=== PATIENT | male | born 1985 | race Caucasian/White ===

== ENCOUNTER 2016-12-29 12:30 | Emergency (ER) | payer SELFPAY ==
[~2016-12-29] VITALS: Ht 86.4 cm; Wt 79.4 kg
[2016-12-29] MEDS ORDERED: VANCOMYCIN IV 1,000 MG in IV DEXTROSE 5% 250 ML IV ONE (13:30)
[2016-12-29] MEDS ORDERED: VANCOMYCIN IV 200 ML ONE (13:53)
--- NOTE | 2016-12-29 15:53 | NUR ---
IV removed. Catheter intact and site benign. Pressure and 4x4 gauze applied to site. No bleeding noted.
--- NOTE | 2016-12-29 15:54 | NUR ---
Patient discharged to home in stable conditon with friend. Written and verbal after care instructions given. Patient verbalizes understanding of instructions. Stressed follow up.
== END 2016-12-29 15:59 | disposition home or self-care (01) ==
LOC: ER 12:30
DX: L03.011 Cellulitis of right finger (principal)
CPT/HCPCS: 73140; A4217; A4663; J3370

== ENCOUNTER 2017-01-05 08:15 | Emergency (ER) | payer SELFPAY ==
[~2017-01-05] VITALS: Ht 177.8 cm; Wt 79.4 kg
[2017-01-05] MEDS ORDERED: LIDOCAINE HCL 1% 20 ML VIAL ONE (08:58)
[2017-01-05] MEDS: LIDOCAINE HCL 1% 20 ML VIAL IJ ONE ×2 (09:22→09:56)
--- NOTE | 2017-01-05 09:24 | NUR ---
pt is in room #2b. dr Sanchez evaluated the pt.
--- NOTE | 2017-01-05 09:57 | NUR ---
i&d procedure was done by dr Sanchez on pt's right tumb. pt tolerated to procedure without complications.
[2017-01-05] MEDS ORDERED: LIDOCAINE 1%-EPI 1:100,000 20 ML VIAL TP ONE (10:00)
[2017-01-05] MEDS ORDERED: LIDOCAINE 2%-EPI 1:100,000 20 ML VIAL TP ONE (10:00)
[2017-01-05] MEDS ORDERED: LIDOCAINE 2%-EPI 1:100,000 20 ML VIAL ONE (10:05)
[2017-01-05] MEDS ORDERED: CLINDAMYCIN HCL 150 MG CAPSULE PO ONE (10:45)
--- NOTE | 2017-01-05 11:23 | NUR ---
pt was d/c to home. d/c instructions given to the pt. gauze dressing was applied to pt's wound per dr Sanchez order. no bleeding.
[2017-01-05 11:25] VITALS: BP 136/78
[2017-01-05] MEDS ORDERED: CLINDAMYCIN HCL 150 MG CAPSULE ONE (11:27)
== END 2017-01-05 11:26 | disposition home or self-care (01) ==
LOC: ER 08:15
DX: L03.011 Cellulitis of right finger (principal)
CPT/HCPCS: 73140; A4217; A4663; J3490

== ENCOUNTER 2017-01-07 03:43 | Emergency (ER) | payer SELFPAY ==
[~2017-01-07] VITALS: Ht 180.3 cm; Wt 88.5 kg
[2017-01-07] MEDS ORDERED: CLIN300C11 PO (03:57)
--- NOTE | 2017-01-07 04:15 | NUR ---
REMOVED DRESSING ON RIGHT THUMB DRESSING. DR CANELA INTO EVAL WOUND
--- NOTE | 2017-01-07 04:20 | NUR ---
PLACED NEW DRESSING ORDERED BY DR CANELA
--- NOTE | 2017-01-07 04:21 | NUR ---
Patient discharged to home in stable conditon. Written and verbal after care instructions given. Patient verbalizes understanding of instructions.
== END 2017-01-07 04:23 | disposition home or self-care (01) ==
LOC: ER 03:47
DX: L02.511 Cutaneous abscess of right hand (principal); F17.200 Nicotine dependence, unspecified, uncomplicated
CPT/HCPCS: A4663